=== PATIENT | female | born 1980 | race Caucasian/White ===

== ENCOUNTER 2016-08-25 16:27 | Emergency (ER) | payer BC ==
[2016-08-25 17:13] VITALS: BP 120/71
[2016-08-25] MEDS ORDERED: Ipratropium 0.5MG/2.5ML NEB* 0.5 MG/2.5 ML NEB.SOLN INH ONE (17:20)
[2016-08-25] MEDS ORDERED: methylPREDNISolone 125 MG* 2 ML VIAL IM ONE (17:20)
[2016-08-25] MEDS ORDERED: Albuterol 2.5 MG/3 ML NEB.SOL* (0.083%) INH ONE (17:20)
[2016-08-25] MEDS ORDERED: Acetaminop/Codeine 30 MG TAB* 1 TAB (300 MG/30 MG) PO ONE (17:24)
--- NOTE | 2016-08-25 17:25 | UC ---
Respiratory Complaint HPI - History of Current Complaint Chief Complaint: UCGeneralIllness Stated Complaint: COUGH/CONGESTIN/BODY ACHES Time Seen by Provider: 08/25/16 17:15 Hx Obtained From: Patient Hx Last Menstrual Period: 12/01/15 ?: No Onset/Duration: Sudden Onset, Lasting Weeks - 1, Worse Since - last 2 days Timing: Constant Character: Cough: Nonproductive Aggravating Factors: Deep Breaths, Recumbent Position Alleviating Factors: Bronchodilator - not a lot Associated Signs And Symptoms: Positive: Chills, Wheezing, URI, Nasal Congestion , Sinus Discomfort. Negative: Fever, Hoarseness - Risk Factors Pulmonary Embolism Risk Factors: Negative Pseudomonas Risk Factors: Negative Tuberculosis Risk Factors: Negative - Allergies/Home Medications Allergies/Adverse Reactions: Allergies Allergy/AdvReac Type Severity Reaction Status Date / Time No Known Allergies Allergy Verified 08/25/16 17:13 Home Medications: Home Medications guaiFENesin ER TAB [Mucinex*] 600 mg PO BID 08/25/16 [History Confirmed 08/25/16 ] PMH/Surg Hx/FS Hx/Imm Hx Endocrine History Of: Denies: Diabetes, Thyroid Disease Cardiovascular History Of: Denies: Cardiac Disorders, Hypertension Respiratory History Of: Reports: Asthma, Bronchitis Denies: COPD GI/ History Of: Denies: Ulcer - Surgical History Surgical History: Yes Surgery Procedure, Year, and Place: tonsillectomy age 8 - Family History Known Family History: Positive: Hypertension, Diabetes, Respiratory Disease - Social History Occupation: Employed Full-time - at [place] Lives: With Family Alcohol Use: None Substance Use Type: Marijuana Smoking Status (MU): Never Smoked Tobacco Household Exposure Type: Cigarettes - Immunization History Most Recent Influenza Vaccination: no Review of Systems Constitutional: Chills ENT: Sore Throat, Nasal Discharge Respiratory: Shortness Of Breath, Cough Cardiovascular: Chest Pain - rib pain with coughing. Neurological: Headache - sinus in the sphenoid sinus area All Other Systems Reviewed And Are Negative: Yes Physical Exam Triage Information Reviewed: Yes Appearance: No Pain Distress - except with coughing, Well-Nourished, Ill- Appearing Vital Signs: Initial Vital Signs Temp 97.1 F 08/25/16 17:09 Pulse 66 08/25/16 17:09 Resp 18 08/25/16 17:09 BP 120/71 01/08/17 17:09 Pulse Ox 99 08/25/16 17:09 Vital Signs Reviewed: Yes Eyes: Positive: Conjunctiva Clear ENT: Positive: Pharynx normal, TMs normal Neck: Positive: Supple, No Lymphadenopathy Respiratory: Positive: Wheezing - diffuse expiratory wheezes, worse with cough. Cardiovascular: Positive: RRR, No Murmur Musculoskeletal Exam: Normal Neurological Exam: Normal Psychological Exam: Normal Skin Exam: Normal UC Diagnostic Evaluation - Laboratory O2 Sat by Pulse Oximetry: 99 Re-Evaluation - Re-Evaluation First Eval Re-Evaluation Time: 18:07 Change: Improved - feeling much better Respiratory Course/Dx - Differential Dx/Diagnosis Differential Diagnosis/HQI/PQRI: Asthma, Lower Resp Infection, Sinusitis Provider Diagnoses: URI. Mild intermittant asthma with acute exacerbation. Acute sinusitis Discharge - Discharge Plan Condition: Stable Disposition: HOME Prescriptions: Acetaminop/Codeine 30 MG TAB* [Tylenol/Codeine 30 MG TAB*] 1 tab PO Q6H PRN #14 tab MDD 4 PRN Reason: Pain Amoxicillin (*) 875 mg PO BID #20 tab predniSONE TAB* [Deltasone TAB*] 20 mg PO DAILY #18 tab Patient Education Materials: Upper Respiratory Infection (ED), Asthma (ED), Prednisone (By mouth), Sinusitis (ED), Amoxicillin (By mouth), Acetaminophen/ Codeine (By mouth) Forms: *Work Release
[2016-08-25] MEDS ORDERED: Amoxicillin PO (*) 500 MG CAP PO ONE (17:27)
== END 2016-08-25 18:24 | disposition home or self-care (01) ==
LOC: UCCORT 16:27
DX: J06.9 Acute upper respiratory infection, unspecified (principal); J45.21 Mild intermittent asthma with (acute) exacerbation; J01.90 Acute sinusitis, unspecified
CPT/HCPCS: 96372; 99213; A9270-GY; G0463; J2930; J7644

== ENCOUNTER 2016-10-28 16:35 | Emergency (ER) | payer BC ==
[2016-10-28 17:05] VITALS: BP 107/73
[2016-10-28] MEDS ORDERED: Albuterol 2.5 MG/3 ML NEB.SOL* (0.083%) INH ONE (17:11)
[2016-10-28] MEDS ORDERED: Ipratropium 0.5MG/2.5ML NEB* 0.5 MG/2.5 ML NEB.SOLN INH ONE (17:11)
--- NOTE | 2016-10-28 17:22 | UC ---
Respiratory Complaint HPI - HPI Summary HPI Summary: 36 yo female with cough and wheezing x 3 days yesterday developed chills/felt feverish and myalgias runny nose no CP or sob - History of Current Complaint Chief Complaint: UCGeneralIllness Stated Complaint: UPPER RESPIRATORY Time Seen by Provider: 10/28/16 17:07 Hx Obtained From: Patient Hx Last Menstrual Period: 10/15/16 Onset/Duration: Gradual Onset, Lasting Days Timing: Constant Severity Initially: Mild Severity Currently: Moderate Pain Intensity: 4 Pain Scale Used: 0-10 Numeric Character: Cough: Nonproductive Aggravating Factors: Nothing Alleviating Factors: Nothing Associated Signs And Symptoms: Positive: Fever - marcin, Chills, Wheezing, Nasal Congestion, Sinus Discomfort - Allergies/Home Medications Allergies/Adverse Reactions: Allergies Allergy/AdvReac Type Severity Reaction Status Date / Time No Known Allergies Allergy Verified 08/25/16 17:13 Home Medications: Home Medications Albuterol 2.5MG/3ML (0.083%)* [Ventolin 2.5 MG/3 ML NEB.UMER*] 2.5 mg INH Q6H PRN 10/28/16 [History Confirmed 10/28/16] PMH/Surg Hx/FS Hx/Imm Hx Previously Healthy: Yes Endocrine History Of: Denies: Diabetes, Thyroid Disease Cardiovascular History Of: Denies: Cardiac Disorders, Hypertension Respiratory History Of: Reports: Asthma, Bronchitis Denies: COPD GI/ History Of: Denies: Ulcer - Surgical History Surgical History: Yes Surgery Procedure, Year, and Place: tonsillectomy age 8 - Family History Known Family History: Positive: Cardiac Disease, Hypertension, Diabetes, Respiratory Disease - Social History Alcohol Use: None Substance Use Type: None Smoking Status (MU): Never Smoked Tobacco Household Exposure Type: Cigarettes - Immunization History Most Recent Influenza Vaccination: no Review of Systems Constitutional: Fever - marcin, Chills, Fatigue Skin: Negative Eyes: Negative ENT: Nasal Discharge Respiratory: Cough Cardiovascular: Negative Gastrointestinal: Negative Genitourinary: Negative Motor: Negative Neurovascular: Negative Musculoskeletal: Myalgia Neurological: Headache Psychological: Negative All Other Systems Reviewed And Are Negative: Yes Physical Exam Triage Information Reviewed: Yes Appearance: Well-Appearing, No Pain Distress, Well-Nourished Vital Signs: Initial Vital Signs Temp 96.8 F 10/28/16 16:56 Pulse 94 10/28/16 16:56 Resp 16 10/28/16 16:56 BP 107/73 10/28/16 16:56 Pulse Ox 96 10/28/16 16:56 Vital Signs Reviewed: Yes Eyes: Positive: Conjunctiva Clear ENT: Positive: Nasal congestion Neck exam: Normal Neck: Positive: Supple, Nontender, No Lymphadenopathy Respiratory: Positive: No respiratory distress, No accessory muscle use, Wheezing - with forced expiration Cardiovascular: Positive: RRR, No Murmur Abdominal Exam: Normal Bowel Sounds: Positive: Present Musculoskeletal: Positive: ROM Intact, No Edema Neurological: Positive: Alert Psychological Exam: Normal Skin Exam: Normal UC Diagnostic Evaluation - Laboratory O2 Sat by Pulse Oximetry: 96 - normal/not hypoxic Re-Evaluation - Re-Evaluation First Eval Re-Evaluation Time: 17:55 Change: Improved - lungs CTA Respiratory Course/Dx - Differential Dx/Diagnosis Provider Diagnoses: acute bronchitis Discharge - Discharge Plan Condition: Stable Disposition: HOME
[2016-10-28] MEDS ORDERED: predniSONE TAB* 20 MG PO ONE (17:53)
== END 2016-10-28 18:05 | disposition home or self-care (01) ==
LOC: UCCORT 16:35
DX: J45.909 Unspecified asthma, uncomplicated (principal); Z77.22 Contact with and (suspected) exposure to environmental tobacco smoke (acute) (chronic)
CPT/HCPCS: 87502; 99212; G0463; J7512; J7644

== ENCOUNTER → 2016-11-18 16:22 | Emergency (ER) | payer SELFPAY ==
[~2016-11-18 16:22] MED LIST: PPD test dose* 5 TU/0.1 ML TEST (*USE PPD ORDER SET*) ONE
--- NOTE | 2016-11-19 07:24 | ED ---
Medical Screening - HPI Summary HPI Summary: Patient presents to for physical exam for clearance for new job. - History of Current Complaint Stated Complaint: PRE-EMPLOYMENT PHYSICAL/PPD Time Seen by Provider: 11/18/16 18:08 Associated Signs and Symptoms: Negative PMH/Surg Hx/FS Hx/Imm Hx Previously Healthy: Yes - obese Endocrine/Hematology History: Denies: Hx Diabetes, Hx Thyroid Disease Cardiovascular History: Denies: Hx Hypertension Respiratory History: Reports: Hx Asthma Denies: Hx Chronic Obstructive Pulmonary Disease (COPD) GI History: Denies: Hx Ulcer - Cancer History Hx Hematologic Symptoms: No Hx Palliative Cancer Treatment: No - Surgical History Surgery Procedure, Year, and Place: tonsillectomy age 8 Hx Anesthesia Reactions: No - Immunization History Date of Tetanus Vaccine: PT STATES UNSURE Date of Influenza Vaccine: NONE Hx Pertussis Vaccination: Yes Immunizations Up to Date: Unable to Obtain/Confirm - MMR vaccine - unable to confirm 2nd MMR Infectious Disease History: Denies: Hx Hepatitis, Hx Human Immunodeficiency Virus (HIV), Traveled Outside the [place] in Last 30 Days - Family History Known Family History: Positive: Cardiac Disease, Hypertension, Diabetes, Respiratory Disease - Social History Occupation: Employed Full-time Lives: With Family Alcohol Use: None Hx Substance Use: No Substance Use Type: Reports: None Hx Tobacco Use: No Smoking Status (MU): Never Smoked Tobacco Do You Chew or Dip Tobacco: No Review of Systems Constitutional: Negative Eyes: Negative ENT: Negative Cardiovascular: Negative Respiratory: Negative Gastrointestinal: Negative Genitourinary: Negative Positive: no symptoms reported, pain Musculoskeletal: Negative Skin: Negative Neurological: Negative Psychological: Normal All Other Systems Reviewed And Are Negative: Yes Physical Exam Triage Information Reviewed: Yes Completion Of Physical Exam Limited Due To: Dementia Appearance: Positive: Well-Appearing, No Pain Distress, Well-Nourished Skin: Positive: Warm, Skin Color Reflects Adequate Perfusion Head/Face: Positive: Normal Head/Face Inspection Eyes: Positive: Normal, EOMI, MISAEL, Conjunctiva Clear ENT: Positive: Normal ENT inspection, Hearing grossly normal, Pharynx normal, TMs normal Neck: Positive: Supple, Nontender, No Lymphadenopathy Respiratory/Lung Sounds: Positive: Clear to Auscultation, Breath Sounds Present Cardiovascular: Positive: Normal, RRR, Pulses are Symmetrical in both Upper and Lower Extremities Abdomen Description: Positive: Nontender, No Organomegaly, Soft Bowel Sounds: Positive: Present Musculoskeletal: Positive: Normal, Strength/ROM Intact Neurological: Positive: Normal, Sensory/Motor Intact, Alert, Oriented to Person Place, Time, CN Intact II-III, Normal Gait, Facial Symmetry, Speech Normal Psychiatric: Positive: Normal AVPU Assessment: Alert - [place] Coma Scale Best Eye Response: 4 - Spontaneous Best Motor Response: 6 - Obeys Commands Best Verbal Response: 5 - Oriented Course/Dx - Course Course Of Treatment: Patient cleared for work by history and physical exam with exception of 2nd MMR vaccine. Paperwork signed with note stating patient needed 2nd vaccine for MMR. Otherwise cleared. - Diagnoses Provider Diagnoses: History and physical examination, occupation Discharge - Discharge Plan Condition: Stable Disposition: HOME Referrals: No Primary Care Phys,NOPCP [Primary Care Provider] -
== END | disposition home or self-care (01) ==
LOC: OHCORT 16:22 → UCCORT 16:22
DX: Z11.1 Encounter for screening for respiratory tuberculosis (principal)

== ENCOUNTER 2017-01-06 18:19 | Emergency (ER) | payer SELFPAY ==
[2017-01-06 18:56] VITALS: BP 109/54
--- NOTE | 2017-01-16 18:06 | UC ---
Respiratory Complaint HPI - HPI Summary HPI Summary: Cough for 2 weeks---no fevers albuterol with some relief - History of Current Complaint Chief Complaint: UCRespiratory Stated Complaint: COUGH Time Seen by Provider: 01/06/17 19:19 Hx Obtained From: Patient Hx Last Menstrual Period: october 2016, states irregular ?: No Onset/Duration: Gradual Onset, Lasting Weeks, Still Present Timing: Constant Severity Initially: Mild Severity Currently: Mild Pain Intensity: 5 Pain Scale Used: 0-10 Numeric Character: Cough: Nonproductive Aggravating Factors: Nothing Alleviating Factors: Bronchodilator Associated Signs And Symptoms: Positive: URI, Nasal Congestion - Allergies/Home Medications Allergies/Adverse Reactions: Allergies Allergy/AdvReac Type Severity Reaction Status Date / Time No Known Allergies Allergy Verified 01/06/17 18:56 PMH/Surg Hx/FS Hx/Imm Hx Previously Healthy: No Respiratory History: Asthma - Surgical History Surgical History: Yes Surgery Procedure, Year, and Place: tonsillectomy age 8 - Family History Known Family History: Positive: Cardiac Disease, Hypertension, Diabetes, Respiratory Disease - Social History Occupation: Employed Full-time Lives: With Family Alcohol Use: None Substance Use Type: None Smoking Status (MU): Never Smoked Tobacco Household Exposure Type: Cigarettes - Immunization History Most Recent Influenza Vaccination: no Review of Systems Constitutional: Negative Skin: Negative Eyes: Negative ENT: Negative Respiratory: Cough Cardiovascular: Negative Gastrointestinal: Negative Genitourinary: Negative Motor: Negative Neurovascular: Negative Musculoskeletal: Negative Neurological: Negative Psychological: Negative All Other Systems Reviewed And Are Negative: Yes Physical Exam Triage Information Reviewed: Yes Appearance: Well-Appearing, No Pain Distress, Well-Nourished Vital Signs: Initial Vital Signs Temp 98 F 01/06/17 18:48 Pulse 88 01/06/17 18:48 Resp 20 01/06/17 18:48 BP 109/54 01/06/17 18:48 Pulse Ox 98 01/06/17 18:48 Vital Signs Reviewed: Yes Eye Exam: Normal Eyes: Positive: Conjunctiva Clear ENT Exam: Normal ENT: Positive: Normal ENT inspection, Hearing grossly normal, Pharynx normal, TMs normal. Negative: Nasal congestion, Nasal drainage, Tonsillar swelling, Tonsillar exudate, Trismus, Muffled/hoarse voice Dental Exam: Normal Neck exam: Normal Neck: Positive: Supple, Nontender Respiratory Exam: Normal Respiratory: Positive: Chest non-tender, Lungs clear, Normal breath sounds, No respiratory distress, No accessory muscle use Cardiovascular Exam: Normal Cardiovascular: Positive: RRR, No Murmur, Pulses Normal, Brisk Capillary Refill Musculoskeletal Exam: Normal Musculoskeletal: Positive: Strength Intact, ROM Intact, No Edema Neurological Exam: Normal Neurological: Positive: Alert, Muscle Tone Normal Psychological Exam: Normal Skin Exam: Normal UC Diagnostic Evaluation - Laboratory O2 Sat by Pulse Oximetry: 98 Respiratory Course/Dx - Course Course Of Treatment: prednisone, albuterol, my use antibiodics if symptoms worsen or fail to improve follow with pcp - Differential Dx/Diagnosis Differential Diagnosis/HQI/PQRI: Asthma, Bronchitis, Sinusitis Provider Diagnoses: Acute exacebation of Bronchitis, Bronchospasm Discharge - Discharge Plan Condition: Stable Disposition: HOME Prescriptions: Azithromycin TAB* [Zithromax TAB (Z-CORDELIA) 250 mg #6 tabs] 2 tab PO .TODAY, THEN 1 DAILY #1 cordelia predniSONE TAB* [Deltasone TAB*] 10 mg PO DAILY #20 tab Patient Education Materials: Acute Bronchitis (ED), Bronchospasm (ED) Forms: *Work Release Referrals: [facility] [Outside] - 5 Days No Primary Care Phys,NOPCP [Primary Care Provider] -
== END 2017-01-06 19:43 | disposition home or self-care (01) ==
LOC: UCCORT 18:19
DX: J20.9 Acute bronchitis, unspecified (principal); R05 Cough; R09.81 Nasal congestion; J06.9 Acute upper respiratory infection, unspecified; Z77.22 Contact with and (suspected) exposure to environmental tobacco smoke (acute) (chronic)
CPT/HCPCS: 99212; G0463

== ENCOUNTER 2017-08-29 17:06 | Emergency (ER) | payer SELFPAY ==
[2017-08-29 18:12] VITALS: BP 125/62
--- NOTE | 2017-08-29 18:30 | UC ---
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 -she took 1600mgs of ibuprofen at 1 time yesterday w/o any relief (adv not to take more than a prescribed amount). No trauma. no one incident that caused pain. pain radiates to upper back and into neck adn upper lateral arm. no numbing/weakness/tingling into fingers. ice made sx worse. -she usually does not support her arm when she is tattooing. -can move arm but causes extreme pain to do "anything" getting dressed, coat, shirt, bra, hair etc. -denies - History of Current Complaint Chief Complaint: UCUpperExtremity Stated Complaint: LEFT SHOULDER INJ Time Seen by Provider: 08/29/17 18:29 Hx Last Menstrual Period: "4-5 months ago", denies risk of - Allergies/Home Medications Allergies/Adverse Reactions: Allergies Allergy/AdvReac Type Severity Reaction Status Date / Time No Known Allergies Allergy Verified 08/29/17 18:12 PMH/Surg Hx/FS Hx/Imm Hx Previously Healthy: Yes - Surgical History Surgical History: Yes Surgery Procedure, Year, and Place: tonsillectomy age 8 - Family History Known Family History: Positive: Cardiac Disease, Hypertension, Diabetes, Respiratory Disease - Social History Alcohol Use: None Substance Use Type: None Smoking Status (MU): Never Smoked Tobacco Household Exposure Type: Cigarettes - Immunization History Most Recent Influenza Vaccination: no Review of Systems Constitutional: Negative Skin: Negative Eyes: Negative ENT: Negative Respiratory: Negative Cardiovascular: Negative Gastrointestinal: Negative Genitourinary: Negative Motor: Negative Neurovascular: Negative Musculoskeletal: Arthralgia, Decreased ROM Neurological: Negative Psychological: Negative Is Patient Immunocompromised?: No All Other Systems Reviewed And Are Negative: Yes Physical Exam Triage Information Reviewed: Yes Appearance: Pain Distress Vital Signs: Initial Vital Signs Temp 97.1 F 08/29/17 18:07 Resp 17 08/29/17 18:07 BP 125/62 08/29/17 18:07 Pulse Ox 100 08/29/17 18:07 Vital Signs Reviewed: Yes Neck exam: Normal Neck: Positive: Supple, Nontender Respiratory: Positive: Lungs clear, Normal breath sounds Cardiovascular Exam: Normal Cardiovascular: Positive: RRR, No Murmur, Pulses Normal Musculoskeletal: Positive: ROM Limited @ - all planes at extreme due to severe pain. she is grimacing w/ movement. + 2 B/T/BR. swollen left upper trap and TTP. CR brisk, + 2 radial left. Neurological Exam: Normal Psychological Exam: Normal Skin Exam: Normal Upper Extremity Course/Dx - Course Course Of Treatment: left shoulder xray - negative. urine HCG - Differential Dx/Diagnosis Differential Diagnosis/HQI/PQRI: Arthritis, Bursitis, Strain, Sprain Provider Diagnoses: left shoulder strain Discharge - Discharge Plan Condition: Stable Disposition: HOME Prescriptions: Ibuprofen TAB* [Motrin TAB* 600 MG] 600 mg PO Q8H PRN 20 Days #60 tab PRN Reason: Pain Patient Education Materials: Tendinitis (ED) Referrals: Andres Mon MD [Medical Doctor] - No Primary Care Phys,NOPCP [Primary Care Provider] - [facility] [Provider Group] Additional Instructions: Your shoulder xray is negative. This is soft tissue swelling. It is very important that you rest your arm and develop supporting technique for your left arm while you work. PT would be helpful as well, but you verbalized that you don 't have insurance. You can also make a make shift arm sling as we discussed to help support your arm.
--- NOTE | 2017-08-29 19:18 | RAD ---
INDICATION: Left shoulder pain COMPARISON: None TECHNIQUE: Routine frontal, Y and axial views were obtained. FINDINGS: The bony structures, joint spaces, and soft tissues are normal for age. IMPRESSION: NEGATIVE EXAMINATION
== END 2017-08-29 19:45 | disposition home or self-care (01) ==
LOC: UCCORT 17:06
DX: S46.912A Strain of unspecified muscle, fascia and tendon at shoulder and upper arm level, left arm, initial encounter (principal); X58.XXXA Exposure to other specified factors, initial encounter; Y92.9 Unspecified place or not applicable
CPT/HCPCS: 84702; 99212; G0463

== ENCOUNTER 2018-06-14 21:16 | Emergency (ER) | payer OTHER ==
[2018-06-14] MEDS ORDERED: NS 0.9% 1000 ML* 1,000 ML IV ONE (21:25)
[2018-06-14] MEDS ORDERED: Metoclopramide IV* 5 MG/ML 2 ML VIAL IV ONE (21:25)
[2018-06-14] MEDS ORDERED: diPHENhydraMINE IV* 50 MG/ML 1 ml VIAL (BENADRYL) IV ONE (21:25)
[2018-06-14] MEDS ORDERED: Ketorolac INJ* 30 MG/ML 1 ML VIAL IV PUSH ONE (21:25)
--- NOTE | 2018-06-14 21:38 | ED ---
Headache - HPI Summary HPI Summary: A 38 y/o F presents to ED with c/o temporal YOUNG and radiating to occipital lobe onset three days ago. Pt has had YOUNG similar to these previously, she gets them approx once a month. Associated sx: rhinorrhea, mild photophobia. She states she had a recent cold. Denies sinus pain, sore throat, fever, neck pain. Pt does not have a menstrual cycle. Pt does not have a PCP nor a neurologist. PMHx : asthma. Pt was seen in [place] last week and given Flexeril and Bactrim. - History Of Current Complaint Chief Complaint: EDHeadache Stated Complaint: HEADACHE Time Seen by Provider: 06/14/18 21:26 Hx Obtained From: Patient Hx Last Menstrual Period: "4-5 months ago", denies risk of Onset/Duration: Started days ago, Still Present Initially Headache Was: Severe Currently Pain Is: Current Pain Scale(0-10)= - 10, Severe Timing: Constant Location of Headache: Temporal, Occipital Associated Signs And Symptoms: Other (Noted In Comments) - see HPI Summary - Allergies/Home Medications Allergies/Adverse Reactions: Allergies Allergy/AdvReac Type Severity Reaction Status Date / Time No Known Allergies Allergy Verified 06/14/18 22:28 Home Medications: Home Medications Flexeril 10 MG TAB* 10 mg PO Q12HR PRN 06/14/18 [History Confirmed 06/14/18] PMH/Surg Hx/FS Hx/Imm Hx Previously Healthy: No Endocrine/Hematology History: Denies: Hx Diabetes, Hx Thyroid Disease Cardiovascular History: Denies: Hx Hypertension Respiratory History: Reports: Hx Asthma Denies: Hx Chronic Obstructive Pulmonary Disease (COPD) GI History: Denies: Hx Ulcer Neurological History: Reports: Hx Headaches - Cancer History Hx Hematologic Symptoms: No Hx Palliative Cancer Treatment: No - Surgical History Surgery Procedure, Year, and Place: tonsillectomy age 8 Hx Anesthesia Reactions: No - Immunization History Date of Tetanus Vaccine: PT STATES UNSURE Date of Influenza Vaccine: NONE Infectious Disease History: No Infectious Disease History: Denies: Hx Hepatitis, Hx Human Immunodeficiency Virus (HIV), Traveled Outside the [place] in Last 30 Days - Family History Known Family History: Positive: Cardiac Disease, Hypertension, Diabetes, Respiratory Disease Negative: Other - neg: migraines/YOUNG - Social History Occupation: Unemployed Lives: With Family Alcohol Use: None Hx Substance Use: No Substance Use Type: Reports: None Hx Tobacco Use: No Smoking Status (MU): Never Smoked Tobacco Review of Systems Negative: Fever Positive: Photophobia - mild Positive: Nasal Discharge, Other - neg: sinus pain. Negative: Sore Throat Negative: Other - neg: neck pain Positive: Headache All Other Systems Reviewed And Are Negative: Yes Physical Exam - Summary Physical Exam Summary: Appearance: Well appearing, no pain distress Skin: warm, dry, reflects adequate perfusion Head/face: normal, temporal arteries are non-tender Eyes: EOMI, MISAEL ENT: mucous membranes moist, no sinus cavity tenderness Neck: supple, non-tender Respiratory: CTA, breath sounds present Cardiovascular: RRR, pulses symmetrical Abdomen: non-tender, soft Bowel Sounds: present Musculoskeletal: normal, strength/ROM intact Neuro: normal, sensory motor intact, A&Ox3 Triage Information Reviewed: Yes Vital Signs On Initial Exam: Initial Vitals Temp Pulse Resp BP Pulse Ox 98.2 F 84 20 127/84 98 06/14/18 21:18 06/14/18 21:18 06/14/18 21:18 06/14/18 21:18 06/14/18 21:18 Vital Signs Reviewed: Yes Diagnostics - Vital Signs Vital Signs Temp Pulse Resp BP Pulse Ox 06/14/18 21:18 98.2 F 84 20 127/84 98 - Laboratory Lab Statement: Any lab studies that have been ordered have been reviewed, and results considered in the medical decision making process. Re-Evaluation - Re-Evaluation 1 Re-Evaluation Time: 22:43 Change: Improved Comment: Pt is feeling better and is requesting discharge. Headache Course/Dx - Course Course Of Treatment: Patient with minor upper respiratory symptoms leading to exacerbation of her chronic headache condition. She was treated here with near total relief. She is not on any medications to control her headaches. She was given primary care referral, neurology referral and will follow-up as soon as possible. No high risk features today. - Diagnoses Differential Diagnosis/HQI/PQRI: Migraine, Sinus Headache, Subarachnoid Hemorrhage, Temporal Arteritis, Tension Headache, Viral Syndrome Provider Diagnoses: URI (upper respiratory infection), Migraine headache Discharge - Sign-Out/Discharge Documenting (check all that apply): Patient Departure - DC - Discharge Plan Condition: Improved Disposition: HOME Prescriptions: Promethazine TAB* [Phenergan Tab*] 25 mg PO Q6H PRN #20 tab PRN Reason: headache/nausea Patient Education Materials: Migraine Headache (ED) Referrals: [facility] [Outside] [facility] [Outside] Chastity Barker MD [Medical Doctor] - Additional Instructions: Prescribed medication along with ibuprofen, Benadryl, water and caffeine if serious headache. Return with fevers, worsening, new symptoms or other concerns. - Billing Disposition and Condition Condition: IMPROVED Disposition: Home - Attestation Statements Document Initiated by Scribe: Yes Documenting Scribe: Justo Beckham Provider For Whom Scribe is Documenting (Include Credential): Dr. Amilcar Brizuela MD Scribe Attestation: Justo Ramirez scribed for Dr. Amilcar Brizuela MD on 06/15/18 at 0412. Scribe Documentation Reviewed: Yes Provider Attestation: The documentation as recorded by the Justo lehman accurately reflects the service I personally performed and the decisions made by , Dr. Amilcar Brizuela MD
[2018-06-14] MEDS ORDERED: diPHENhydraMINE PO* 50 MG PO ONE (21:55)
[2018-06-14 23:44] VITALS: BP 98/76
== END 2018-06-14 23:50 | disposition home or self-care (01) ==
LOC: ED 21:16
DX: J06.9 Acute upper respiratory infection, unspecified (principal); G43.909 Migraine, unspecified, not intractable, without status migrainosus
CPT/HCPCS: 96374; 96375; 99284; A9270-GY; J1885; J2765

== ENCOUNTER 2018-06-29 22:57 | Emergency (ER) | payer OTHER ==
[2018-06-29] MEDS ORDERED: NS 0.9% 1000 ML* 1,000 ML IV ONE (23:30)
[2018-06-29] MEDS ORDERED: Ketorolac INJ* 30 MG/ML 1 ML VIAL IV PUSH ONE (23:31)
[2018-06-29] MEDS ORDERED: Ondansetron INJ* 2 MG/ML VIAL IV ONE (23:31)
[2018-06-29 23:47] LABS: ABS Basophils 0 10^3/ul (0-0.2); ABS Eosinophils 0.1 10^3/ul (0-0.6); ABS Lymphocytes 2.5 10^3/ul (1.0-4.8); ABS Monocytes 0.7 10^3/ul (0-0.8); ABS Neutrophils 5.9 10^3/ul (1.5-7.7); ABS Nucleated RBC 0 10^3/ul; Hematocrit 43 % (35-47); Hemoglobin 14.6 g/dl (12.0-16.0); Lymphocyte % 26.8 % (25-47); Mean Corpuscular HGB Conc 34 g/dl (31-36); Mean Corpuscular Hemoglobin 30 pg (27-31); Mean Corpuscular Volume 87 fL (80-97); Mean Platelet Volume 7.8 fL (7.4-10.4); Nucleated Red Blood Cells % 0.1; Platelet Count 304 10^3/ul (150-450); Red Blood Count 4.95 10^6/ul (4.00-5.40); Red Cell Distribution Width 14 % (10.5-15); White Blood Count 9.2 10^3/ul (3.5-10.8)
[2018-06-30 00:07] LABS: EGFR Non-African American 117.6 (>60)
[2018-06-30] MEDS ORDERED: Iohexol 300* (CONTRAST) 10 ML SDV IV ONE (01:41)
--- NOTE | 2018-06-30 01:46 | ED ---
GI/ HPI - HPI Summary HPI Summary: 38-year-old female presents with epigastric pain tonight. She admits to nausea and vomiting. she states she has not been able to keep anything down. No diarrhea. She states never has pain before. No previous belly surgeries. No blood in her stool. No chest pain or shortness of breath. No flank pain. No urinary symptoms. No abnormal vaginal discharge. Has no medical conditions has not taking anything for pain. she denies any cough or recent illness. - History of Current Complaint Chief Complaint: EDAbdPain Time Seen by Provider: 06/29/18 23:26 Stated Complaint: ABD PAIN Hx Last Menstrual Period: "4-5 months ago", denies risk of Pain Intensity: 10 - Allergy/Home Medications Allergies/Adverse Reactions: Allergies Allergy/AdvReac Type Severity Reaction Status Date / Time No Known Allergies Allergy Verified 06/29/18 23:00 PMH/Surg Hx/FS Hx/Imm Hx Endocrine/Hematology History: Denies: Hx Diabetes, Hx Thyroid Disease Cardiovascular History: Denies: Hx Hypertension Respiratory History: Reports: Hx Asthma Denies: Hx Chronic Obstructive Pulmonary Disease (COPD) GI History: Denies: Hx Ulcer Neurological History: Reports: Hx Headaches - Cancer History Hx Hematologic Symptoms: No Hx Palliative Cancer Treatment: No - Surgical History Surgery Procedure, Year, and Place: tonsillectomy age 8 Hx Anesthesia Reactions: No - Immunization History Date of Tetanus Vaccine: PT STATES UNSURE Date of Influenza Vaccine: NONE Infectious Disease History: No Infectious Disease History: Denies: Hx Hepatitis, Hx Human Immunodeficiency Virus (HIV), Traveled Outside the [place] in Last 30 Days - Family History Known Family History: Positive: Cardiac Disease, Hypertension, Diabetes, Respiratory Disease Negative: Other - neg: migraines/YOUNG - Social History Alcohol Use: None Hx Substance Use: No Substance Use Type: Reports: None Hx Tobacco Use: No Smoking Status (MU): Never Smoked Tobacco Review of Systems Negative: Fever Negative: Chest Pain Negative: Shortness Of Breath Positive: Abdominal Pain, Vomiting, Nausea. Negative: Diarrhea All Other Systems Reviewed And Are Negative: Yes Physical Exam Triage Information Reviewed: Yes Vital Signs On Initial Exam: Initial Vitals Temp Pulse Resp BP Pulse Ox 97.8 F 86 20 126/93 96 06/29/18 22:58 06/29/18 22:58 06/29/18 22:58 06/29/18 22:58 06/29/18 22:58 Vital Signs Reviewed: Yes Appearance: Positive: Well-Appearing Skin: Positive: Warm, Dry Head/Face: Positive: Normal Head/Face Inspection Eyes: Positive: Normal, Conjunctiva Clear ENT: Positive: Pharynx normal Respiratory/Lung Sounds: Positive: Clear to Auscultation, Breath Sounds Present Cardiovascular: Positive: Normal, RRR Abdomen Description: Positive: Soft, Other: - tenderness in RUQ Bowel Sounds: Positive: Present Musculoskeletal: Positive: Normal Neurological: Positive: Normal Psychiatric: Positive: Normal Diagnostics - Vital Signs Vital Signs Temp Pulse Resp BP Pulse Ox 06/30/18 00:10 75 124/70 98 06/29/18 22:58 97.8 F 86 20 126/93 96 - Laboratory Lab Results: Lab Results 06/29/18 06/29/18 06/29/18 Range/Units 23:37 23:37 23:38 WBC 9.2 (3.5-10.8) 10^3/ul RBC 4.95 (4.00-5.40) 10^6/ul Hgb 14.6 (12.0-16.0) g/dl Hct 43 (35-47) % MCV 87 (80-97) fL MCH 30 (27-31) pg MCHC 34 (31-36) g/dl RDW 14 (10.5-15) % Plt Count 304 (150-450) 10^3/ul MPV 7.8 (7.4-10.4) fL Neut % (Auto) 64.2 (38-83) % Lymph % (Auto) 26.8 (25-47) % [place] % (Auto) 7.6 H (0-7) % Eos % (Auto) 1.0 (0-6) % Baso % (Auto) 0.4 (0-2) % Absolute Neuts (auto) 5.9 (1.5-7.7) 10^3/ul Absolute Lymphs (auto) 2.5 (1.0-4.8) 10^3/ul Absolute Monos (auto) 0.7 (0-0.8) 10^3/ul Absolute Eos (auto) 0.1 (0-0.6) 10^3/ul Absolute Basos (auto) 0 (0-0.2) 10^3/ul Absolute Nucleated RBC 0 10^3/ul Nucleated RBC % 0.1 D-Dimer, Quantitative < 200 (Less Than 230) ng/mL Sodium 135 (135-145) mmol/L Potassium 3.8 (3.5-5.0) mmol/L Chloride 104 (101-111) mmol/L Carbon Dioxide 26 (22-32) mmol/L Anion Gap 5 (2-11) mmol/L BUN 16 (6-24) mg/dL Creatinine 0.58 (0.51-0.95) mg/dL Est GFR ( Amer) 142.3 (>60) Est GFR (Non-Af Amer) 117.6 (>60) BUN/Creatinine Ratio 27.6 H (8-20) Glucose 98 (70-100) mg/dL Calcium 8.7 (8.6-10.3) mg/dL Total Bilirubin 0.30 (0.2-1.0) mg/dL AST 14 (13-39) U/L ALT 10 (7-52) U/L Alkaline Phosphatase 88 (34-104) U/L C-Reactive Protein 12.41 H (<8.01) mg/L Total Protein 6.9 (6.4-8.9) g/dL Albumin 3.9 (3.2-5.2) g/dL Globulin 3.0 (2-4) g/dL Albumin/Globulin Ratio 1.3 (1-3) Lipase 19 (11.0-82.0) U/L Beta HCG, Quant < 0.60 mIU/mL Result Diagrams: 06/29/18 23:37 06/29/18 23:37 Lab Statement: Any lab studies that have been ordered have been reviewed, and results considered in the medical decision making process. - CT abd CT Interpretation Completed By: Radiologist Summary of CT Findings: IMPRESSION: 1. Hepatic lesion in the dome which is probably similar to a prior study of. 09/14/2013 and may reflect focal nodular hyperplasia or possible adenoma. 2. Large nabothian cyst measuring 2.8 x 3.6 x 2.7 cm which is similar. 3. Otherwise negative CT abdomen/pelvis. - Ultrasound No standard instances Ultrasound Interpretation Completed By: Radiologist Summary of Ultrasound Findings: IMPRESSION: 1. Mild hepatomegaly. 2. Otherwise negative right upper quadrant sonogram. No gallstones. Re-Evaluation - Re-Evaluation First Eval Re-Evaluation Time: 01:59 Change: Improved Comment: feeling better but pain not completely resolved GIGU Course/Dx - Course Course Of Treatment: 38-year-old female presents with epigastric pain tonight. She admits to nausea and vomiting. she states she has not been able to keep anything down. No diarrhea. She states never has pain before. No previous belly surgeries. No blood in her stool. No chest pain or shortness of breath. No flank pain. No urinary symptoms. No abnormal vaginal discharge. Has no medical conditions has not taking anything for pain. On exam has tenderness in the right upper quadrant with no rebound. white cell count normal. CRP normal. Ultrasound negative. With extreme amount of pain got CT. CT shows no acute findings. discussed other findings with patient. d-dimer negative. urine likely contaminant. patient has promethazine at home. told to follow up with primary. patient understands and agrees with plan. - Diagnoses Differential Diagnoses - Female: Cholelithiasis, Cholecystitis, Urinary Tract Infection Provider Diagnoses: Abdominal pain, Vomiting Discharge - Sign-Out/Discharge Documenting (check all that apply): Patient Departure - Discharge Plan Condition: Good Disposition: HOME Patient Education Materials: Acute Nausea and Vomiting (ED) Referrals: No Primary Care Phys,NOPCP [Primary Care Provider] - Additional Instructions: Can take promethazine every 6 hours as needed for nausea Drink small amounts of fluid as tolerated When able to eat follow BRAT diet: Bananas, rice, applesauce, toast Take ibuprofen or Tylenol for pain as needed every 6 hours Follow up with primary within 5 days Return to ED if develop any new or worsening symptoms - Billing Disposition and Condition Condition: GOOD Disposition: Home
[2018-06-30] MEDS ORDERED: Pantoprazole IV* 40 MG IV ONE (01:58)
[2018-06-30 02:15] LABS: Urine Appearance Cloudy; Urine Blood Negative (Negative); Urine Color Yellow; Urine Ketones Negative (Negative); Urine Protein Negative (Negative); Urine Red Blood Cell Absent (Absent); Urine Specific Gravity 1.024 (1.010-1.030); Urine Urobilinogen Negative (Negative); Urine White Blood Cell Absent (Absent)
[2018-06-30 02:31] VITALS: BP 118/77
== END 2018-06-30 02:29 | disposition home or self-care (01) ==
LOC: ED 22:57
DX: R10.13 Epigastric pain (principal); R11.2 Nausea with vomiting, unspecified
CPT/HCPCS: 36415; 74177; 76705; 80053; 81003; 81015; 83690; 84702; 85025; 85379; 86140; 87086; 96374; 96375; 99282; J1885; J2405; Q9967

== ENCOUNTER 2018-09-17 15:09 | Emergency (ER) | payer OTHER ==
[2018-09-17 15:40] VITALS: BP 116/80
[2018-09-17 15:52] LABS: Influenza A Molecular POSITIVE (Negative)
--- NOTE | 2018-09-17 15:56 | ED ---
Influenza-Like Illness - HPI Summary HPI Summary: 38 yr old with four days of cough, runny nose, sore throat, fatigue. Onset Friday. She has had chills. No drooling. No other complaints. - History of Current Complaint Chief Complaint: UCRespiratory Time Seen by Provider: 09/17/18 15:43 - Allergy/Home Medications Allergies/Adverse Reactions: Allergies Allergy/AdvReac Type Severity Reaction Status Date / Time No Known Allergies Allergy Verified 09/17/18 15:33 Home Medications: Home Medications Dm/PE/Acetaminophen/Doxylamine [Daytime-Nighttime Cold-Flu] 2 each PO ONCE PRN 09/17/18 [History Confirmed 09/17/18] PMH/Surg Hx/FS Hx/Imm Hx Endocrine/Hematology History: Denies: Hx Diabetes, Hx Thyroid Disease Cardiovascular History: Denies: Hx Hypertension Respiratory History: Reports: Hx Asthma Denies: Hx Chronic Obstructive Pulmonary Disease (COPD) GI History: Denies: Hx Ulcer Neurological History: Reports: Hx Headaches - Cancer History Hx Hematologic Symptoms: No Hx Palliative Cancer Treatment: No - Surgical History Surgery Procedure, Year, and Place: tonsillectomy age 8 Hx Anesthesia Reactions: No - Immunization History Date of Tetanus Vaccine: PT STATES UNSURE Date of Influenza Vaccine: NONE Infectious Disease History: No Infectious Disease History: Denies: Hx Hepatitis, Hx Human Immunodeficiency Virus (HIV), Traveled Outside the [place] in Last 30 Days - Family History Known Family History: Positive: Cardiac Disease, Hypertension, Diabetes, Respiratory Disease Negative: Other - neg: migraines/YOUNG - Social History Occupation: Employed Full-time Lives: With Family Alcohol Use: None Hx Substance Use: No Substance Use Type: Reports: None Hx Tobacco Use: No Smoking Status (MU): Former Smoker Review of Systems Positive: Chills Positive: Sore Throat, Nasal Discharge Positive: Cough All Other Systems Reviewed And Are Negative: Yes Physical Exam Triage Information Reviewed: Yes Vital Signs On Initial Exam: Initial Vitals Temp Pulse Resp BP Pulse Ox 97.9 F 94 18 116/80 97 09/17/18 15:35 09/17/18 15:35 09/17/18 15:35 09/17/18 15:35 09/17/18 15:35 Vital Signs Reviewed: Yes Appearance: Positive: Well-Appearing, No Pain Distress Skin: Positive: Warm, Skin Color Reflects Adequate Perfusion Head/Face: Positive: Normal Head/Face Inspection Eyes: Positive: EOMI ENT: Positive: Pharyngeal erythema, Nasal congestion, Nasal drainage, TMs normal Respiratory/Lung Sounds: Positive: Clear to Auscultation, Breath Sounds Present Cardiovascular: Positive: RRR. Negative: Murmur Abdomen Description: Negative: Distended Musculoskeletal: Positive: Strength/ROM Intact Neurological: Positive: Sensory/Motor Intact, Alert, Oriented to Person Place, Time, CN Intact II-III Psychiatric: Positive: Normal Diagnostics - Vital Signs Vital Signs Temp Pulse Resp BP Pulse Ox 09/17/18 15:35 97.9 F 94 18 116/80 97 - Laboratory Lab Results: Lab Results 09/17/18 Range/Units 15:47 Influenza A (Rapid) Positive A (Negative) Lab Statement: Any lab studies that have been ordered have been reviewed, and results considered in the medical decision making process. Flu Symptom Course/Dx - Course Course Of Treatment: 38 yr old with influenza. tamiflu, and dc home, note for work - Diagnoses Provider Diagnoses: Influenza Discharge - Sign-Out/Discharge Documenting (check all that apply): Patient Departure All imaging exams completed and their final reports reviewed: No Studies - Discharge Plan Condition: Good Disposition: HOME Prescriptions: Oseltamivir CAP* [Tamiflu CAP*] 75 mg PO BID #10 cap Patient Education Materials: Influenza (ED) Forms: *Work Release Referrals: No Primary Care Phys,NOPCP [Primary Care Provider] - [facility] [place] [facility] [Outside] - Billing Disposition and Condition Condition: GOOD Disposition: Home
== END 2018-09-17 16:01 | disposition home or self-care (01) ==
LOC: UCCORT 15:09
DX: J11.1 Influenza due to unidentified influenza virus with other respiratory manifestations (principal); Z87.891 Personal history of nicotine dependence
CPT/HCPCS: 99212; G0463

== ENCOUNTER 2019-07-19 14:12 | Emergency (ER) | payer OTHER ==
[2019-07-19] MEDS ORDERED: HYDROmorphone INJ* 0.5 MG/0.5 ML SYRINGE IV SLOW PU ONE (14:21)
[2019-07-19] MEDS ORDERED: NS 0.9% 500 ML* 500 ML IV ONE (14:22)
[2019-07-19] MEDS ORDERED: HYDROmorphone INJ1* 1 MG/ML SYRINGE ONE (14:22)
[2019-07-19] MEDS ORDERED: HYDROmorphone INJ1* 1 MG/ML SYRINGE IV SLOW PU ONE (14:24)
--- NOTE | 2019-07-19 14:27 | ED ---
Lower Extremity - HPI Summary HPI Summary: Patient is a 39 y/o F presenting to the ED via EMS for a chief complaint of left ankle pain after a fall on 07/19/19. Per EMS, patient went out of her house when she slipped on ice from a standing position. She now complains of left ankle pain and swelling, and is unable to bear weight on the left side. She rates her current pain as 10/10 in severity. Per EMS, patient was given Zofran and 2 doses of 5 mg morphine with some relief for 5 minutes before the pain returns. Last dose of morphine was given at 13:57. Patient denies head injury or LOC. Patient denies any fever, chills, erythema of eyes, sore throat, CP, SOB, cough, abdominal pain, N/V, dysuria, hematuria, rash, syncope, or dizziness. Patient denies tobacco or alcohol use. She does not have a PCP. Allergies noted. - History of Current Complaint Stated Complaint: FOOT INJURY Time Seen by Provider: 07/19/19 14:15 Hx Obtained From: Patient, EMS Hx Last Menstrual Period: unknown Mechanism Of Injury: Fall From A Standing Position Onset of Pain: Immediate Onset/Duration: Still Present Severity Initially: Severe Severity Currently: Severe Pain Intensity: 10 Pain Scale Used: 0-10 Numeric Timing: Constant Location: Is Discrete @ - Left ankle Associated Signs And Symptoms: Negative: Fever Aggravating Factor(s): Movement Alleviating Factor(s): Other - Morphine Able to Bear Weight: No - Allergies/Home Medications Allergies/Adverse Reactions: Allergies Allergy/AdvReac Type Severity Reaction Status Date / Time No Known Allergies Allergy Verified 09/17/18 15:33 Home Medications: Home Medications NK [No Home Medications Reported] 07/19/19 [History Confirmed 07/19/19] PMH/Surg Hx/FS Hx/Imm Hx Previously Healthy: Yes Endocrine/Hematology History: Denies: Hx Diabetes, Hx Thyroid Disease Cardiovascular History: Denies: Hx Hypercholesterolemia, Hx Hypertension Respiratory History: Reports: Hx Asthma Denies: Hx Chronic Obstructive Pulmonary Disease (COPD) GI History: Denies: Hx Ulcer Sensory History: Denies: Hx Legally Blind, Hx Deafness Opthamlomology History: Denies: Hx Legally Blind EENT History: Denies: Hx Deafness Neurological History: Reports: Hx Headaches - Cancer History Hx Hematologic Symptoms: No Hx Palliative Cancer Treatment: No - Surgical History Surgical History: Yes Surgery Procedure, Year, and Place: tonsillectomy age 8 Hx Anesthesia Reactions: No - Immunization History Date of Tetanus Vaccine: PT STATES UNSURE Date of Influenza Vaccine: NONE Infectious Disease History: Denies: Hx Hepatitis, Hx Human Immunodeficiency Virus (HIV) - Family History Known Family History: Positive: Cardiac Disease, Hypertension, Diabetes, Respiratory Disease Negative: Other - neg: migraines/YOUNG - Social History Occupation: Unemployed Lives: With Family Alcohol Use: None Hx Substance Use: No Substance Use Type: Reports: None Hx Tobacco Use: Yes Smoking Status (MU): Former Smoker Review of Systems Negative: Fever, Chills Negative: Erythema Negative: Sore Throat Negative: Chest Pain Negative: Shortness Of Breath, Cough Negative: Abdominal Pain, Vomiting, Nausea Negative: dysuria, hematuria Positive: Myalgia - Left ankle, Edema - Left ankle Negative: Rash Neurological: Other - Negative dizziness Negative: Syncope All Other Systems Reviewed And Are Negative: Yes Physical Exam - Summary Physical Exam Summary: Constitutional: Well-developed, Well-nourished, Alert. (-) Distressed Skin: Warm, Dry HENT: Normocephalic; Atraumatic Eyes: Conjunctiva normal Neck: Musculoskeletal ROM normal neck. (-) JVD, (-) Stridor, (-) Tracheal deviation Cardio: Rhythm regular, rate normal, Heart sounds normal; Intact distal pulses; The pedal pulses are 2+ and symmetric. Radial pulses are 2+ and symmetric. (-) Murmur Pulmonary/Chest wall: Effort normal. (-) Respiratory distress, (-) Wheezes, (-) Rales Abd: Soft, (-) tenderness, (-) Distension, (-) Guarding, (-) Rebound Musculoskeletal: Swelling and bruising over the left malleolus, outward angulation of the ankle. Lymph: (-) Cervical adenopathy Neuro: Alert, Oriented x3 Psych: Mood and affect Normal Triage Information Reviewed: Yes Vital Signs Reviewed: Yes Procedures - Sedation Patient Received Moderate/Deep Sedation with Procedure: Yes Are You The Provider Who Administered The Sedation: [place] of Provider Whom Sedated Patient: ShreeMinor - Joint Reduction Left Joint Reduction Site: ankle (L) Conscious Sedation: Yes Reduction Attempts: 1 Pre-Procedure NV Exam: Yes - Intact Post Joint Reduction Film: joint reduced Diagnostics - Laboratory Lab Statement: Any lab studies that have been ordered have been reviewed, and results considered in the medical decision making process. - Radiology Ankle X-ray Radiology Interpretation Completed By: Radiologist Summary of Radiographic Findings: Ankle X-ray IMPRESSION: #. Trimalleolar ankle fracture and talocrural joint dislocation with apex medial angulation. # . Lateral view of the entire LEFT foot is without evidence for additional fracture or assessment is limited without an orthogonal view of the foot. #. Soft tissue swelling about the visualized lower leg, ankle, and foot. Reviewed by Dr. Saleem. Foot X-ray Radiology Interpretation Completed By: Radiologist Summary of Radiographic Findings: Foot X-ray IMPRESSION: #. Trimalleolar ankle fracture and talocrural joint dislocation with apex medial angulation. #. Lateral view of the entire LEFT foot is without evidence for additional fracture or assessment is limited without an orthogonal view of the foot. #. Soft tissue swelling about the visualized lower leg, ankle, and foot. Reviewed by Dr. Saleem. Knee X-ray Radiology Interpretation Completed By: Radiologist Summary of Radiographic Findings: Knee X-ray IMPRESSION: NO ACUTE OSSEOUS INJURY. IF SYMPTOMS PERSIST, RECOMMEND REPEAT IMAGING. Reviewed by Dr. Saleem. Ankle X-ray 1 Radiology Interpretation Completed By: Radiologist Summary of Radiographic Findings: Ankle X-ray 1 IMPRESSION: #. Trimalleolar ankle fracture and talocrural joint dislocation with apex medial angulation. # . Lateral view of the entire LEFT foot is without evidence for additional fracture or assessment is limited without an orthogonal view of the foot. #. Soft tissue swelling about the visualized lower leg, ankle, and foot. Reviewed by Dr. Saleem. Ankle X-ray 2 Radiology Interpretation Completed By: ED Physician Summary of Radiographic Findings: Ankle X-ray 2 IMPRESSION: joint reduced. Reviewed and interpreted by Dr. Saleem, pending official radiology report. Re-Evaluation - Re-Evaluation First Eval Re-Evaluation Time: 21:06 Change: Improved Comment: At 21:06, patient is able to bear weight. Lower Extremity Course/Dx - Course Course Of Treatment: Patient is a 39 y/o F presenting to the ED via EMS for a chief complaint of left ankle pain after a fall on 07/19/19. Per EMS, patient went out of her house when she slipped on ice from a standing position. She now complains of left ankle pain and swelling, and is unable to bear weight on the left side. She rates her current pain as 10/10 in severity. Per EMS, patient was given Zofran and 2 doses of 5 mg morphine with some relief for 5 minutes before the pain returns. Last dose of morphine was given at 13:57. Patient denies head injury or LOC. Patient denies any fever, chills, erythema of eyes, sore throat, CP, SOB, cough, abdominal pain, N/V, dysuria, hematuria, rash, syncope, or dizziness. Patient denies tobacco or alcohol use. She does not have a PCP. Allergies noted. On exam, swelling and bruising over the left malleolus , outward angulation of the ankle. In the ED course, patient was given Dilaudid 2 mg IV, Ketamine 200 mg IV, Versed 2 mg IV, and fluids. Ankle X-ray 1 IMPRESSION: #. Trimalleolar ankle fracture and talocrural joint dislocation with apex medial angulation. #. Lateral view of the entire LEFT foot is without evidence for additional fracture or assessment is limited without an orthogonal view of the foot. #. Soft tissue swelling about the visualized lower leg, ankle, and foot. Foot X-ray IMPRESSION: #. Trimalleolar ankle fracture and talocrural joint dislocation with apex medial angulation. #. Lateral view of the entire LEFT foot is without evidence for additional fracture or assessment is limited without an orthogonal view of the foot. #. Soft tissue swelling about the visualized lower leg, ankle, and foot. Knee X- ray IMPRESSION: NO ACUTE OSSEOUS INJURY. IF SYMPTOMS PERSIST, RECOMMEND REPEAT IMAGING. Ankle X-ray 2 IMPRESSION: joint reduced. Joint reduction procedure: Left ankle was reduced. There was conscious sedation. There was 1 reduction attempt. There was an intact pre-procedure NV exam. Post reduction films shows joint reduction. Dr. Minor Swann administered procedural sedation. At 21:06, patient is able to bear weight. Patient will be discharged with a diagnosis of trimalleolar fracture and ankle dislocation. Follow up with Dr. Orosco within 24 hours. - Diagnoses Provider Diagnoses: Trimalleolar fracture, Ankle dislocation Discharge ED - Sign-Out/Discharge Documenting (check all that apply): Patient Departure - Discharge - Discharge Plan Condition: Stable Disposition: HOME Patient Education Materials: Moderate Sedation (ED), Ankle Dislocation (ED) Forms: *Work Release Referrals: [facility] [Outside] Tobi Orosco MD [Medical Doctor] - Additional Instructions: RETURN TO THE EMERGENCY DEPARTMENT FOR CHANGING OR WORSENING SYMPTOMS. Follow up with Karishma Rayo in 2-[address] Orosco with in 24 hours to get set up for surgery. Keep your left ankle elevated on 3-4 pillows at all times. - Attestation Statements Document Initiated by Scribe: Yes Documenting Scribe: Chastity Wallace Provider For Whom Scribe is Documenting (Include Credential): Ascencion Saleem MD Scribe Attestation: IChastity, scribed for Ascencion Saleem MD on 07/19/19 at 2103. Status of Scribe Document: Ready
[2019-07-19] MEDS ORDERED: HYDROmorphone INJ* 0.5 MG/0.5 ML SYRINGE IV ONE (15:48)
[2019-07-19] MEDS ORDERED: KETAMINE HCL* 50 MG/ML 10 ML VIAL IV ONE (18:18)
[2019-07-19] MEDS ORDERED: Midazolam* 1 MG/ML 2 ML VIAL (2 MG) IV SLOW PU ONE (18:18)
[2019-07-19] MEDS ORDERED: Midazolam* 1 MG/ML 10 ML VIAL (10 MG) ONE (18:41)
--- NOTE | 2019-07-19 19:03 | ED ---
ED Sedation - Procedural Sedation/Analgesia Sedation Course: RT Present - at this time the patient is alert and oriented 3. The patient is hemodynamically stable. After the procedure patient will continue under Dr. Mendez's care, Emergency Airway Equipment Available, Informed Consent Obtained, Time Out Completed, End-tidal Capnography Utilized Adverse Reactions Experienced by Patient: None Mallampati Classification: Class I ASA Classification: Class I: Normal/Healthy Diagnosis: trimalleolar fracture Pre-Procedural Heart: S1 and S2 Pre-Procedural Lungs: Clear Auscultation Comment/Plan of Care: trimalleolar fracture reduction Provider Procedure Attestation: With My Signature Below, I Attest to have Personally Reviewed and Agree with the Pre-Sedation History and Pre-Service Assessment Update Cleared for Moderate Sedation: Yes Pre-Procedural Diagnosis: trimalleolar fracture Post-Procedural Diagnosis: trimalleolar fracture reduction Procedure: reduction of the trimalleolar fracture Estimated Blood Loss: None Specimen(s): None Findings: None Implants/Tubes/Drains Placed: None Procedures - Sedation Patient Received Moderate/Deep Sedation with Procedure: Yes Are You The Provider Who Administered The Sedation: Yes - Procedural Sedation/Analgesia Sedation Course: RT Present, Emergency Airway Equipment Available, Informed Consent Obtained, Time Out Completed, End-tidal Capnography Utilized Adverse Reactions Experienced by Patient: None Mallampati Classification: Class I ASA Classification: Class I: Normal/Healthy Pre-Procedural Heart: S1 and S2 Pre-Procedural Lungs: Clear Auscultation Comment/Plan of Care: Reduction of trimalleolar fracture Provider Procedure Attestation: With My Signature Below, I Attest to have Personally Reviewed and Agree with the Pre-Sedation History and Pre-Service Assessment Update Cleared for Moderate Sedation: Yes Pre-Procedural Diagnosis: Trimalleolar fracture Post-Procedural Diagnosis: Reduction of trimalleolar fracture Procedure: Reduction of trimalleolar fracture Estimated Blood Loss: None Specimen(s): None Findings: None Implants/Tubes/Drains Placed: None - at this time the patient is alert and oriented 3. Patient will continue with the care with Dr. Saleem Attgilbert Scribe Attestation: Magi Galvez User Type: Provider with Scribe Provider Attestation: The documentation recorded by the scribe accurately reflects the service I personally performed and the decisions made by me.
[2019-07-19] MEDS ORDERED: oxyCODONE/Acetamin 5/325 MG* TAB PO ONE (19:54)
[2019-07-19 22:04] VITALS: BP 107/68
== END 2019-07-19 21:50 | disposition home or self-care (01) ==
LOC: ED 14:12
DX: S82.852A Displaced trimalleolar fracture of left lower leg, initial encounter for closed fracture (principal); W00.0XXA Fall on same level due to ice and snow, initial encounter; Y92.008 Other place in unspecified non-institutional (private) residence as the place of occurrence of the external cause; J45.909 Unspecified asthma, uncomplicated; Z87.891 Personal history of nicotine dependence
CPT/HCPCS: 27818; 96361; 96374; 96376; 99285; A9270-GY; J1170; J2250

== ENCOUNTER → 2019-07-26 10:50 | Day surgery (SDC) | payer OTHER ==
[~2019-07-26 10:50] MED LIST changes: +Acetaminophen TAB* 325 MG ONE; +Acetaminophen TAB* 325 MG PO ONE; +Buffered Lidocaine 1% SYRIN* 1 ML/SYRINGE INTRADERM ONE; +Bupivacaine 0.25% SDV PF* 10 ML VIAL INJ ONE; +Dexamethasone IV* 4 MG/ML 1 ML (4 MG) ONE; +Glycopyrrolate IV* 0.2 MG/ML 1 ML VIAL ONE; +HYDROmorphone INJ1* 1 MG/ML SYRINGE IV PRN; +HYDROmorphone INJ1* 1 MG/ML SYRINGE ONE; +KETAMINE HCL* 50 MG/ML 10 ML VIAL ONE; +Ketorolac INJ* 30 MG/ML 1 ML VIAL IV PRN; +Ketorolac INJ* 30 MG/ML 1 ML VIAL ONE; +Lactated Ringers 1000 ML Bag* 1,000 ML IV SCH; +Midazolam* 1 MG/ML 2 ML VIAL (2 MG) ONE; +Naloxone* 0.4 MG/ML 1 ML VIAL IV PRN; +Ondansetron INJ* 2 MG/ML VIAL IV PRN; +Ondansetron INJ* 2 MG/ML VIAL ONE; -PPD test dose* 5 TU/0.1 ML TEST (*USE PPD ORDER SET*) ONE; +PROCHLORPERAZINE INJ 5 MG/ML 2 ML VIAL IV PRN; +Propofol* 10 MG/ML 20 ML BTL ONE; +ROPIVACAINE 5 MG/ML 30 ML BTL (0.5%) ONE; +Rocuronium* 10 MG/ML VIAL ONE; +Scopolamine 1.5 mg* PATCH ONE; +Scopolamine 1.5 mg* PATCH TRANSDERM SCH; +Scopolamine PATCH Remove* 1 NOTE MISC PATCH OFF ONE; +ceFAZolin 1 GM ADVAN(*) 1 GM ADDV.VIAL IVPB ONE; +ceFAZolin 2 GM PREMIX in ORs 2 GM/50 ML BAG ONE; +diPHENhydraMINE IV* 50 MG/ML 1 ml VIAL (BENADRYL) IV PRN; +fentaNYL* 50 MCG/ML 2 ML VIAL (100 MCG VIAL) ONE; +fentaNYL* 50 MCG/ML 5 ML VIAL (250 MCG VIAL) ONE; +oxyCODONE TAB* 5 MG TAB ONE
[2019-07-26] MEDS: fentaNYL* 50 MCG/ML 2 ML VIAL (100 MCG VIAL) IV PRN ×4 (15:13→15:30)
[2019-07-26] MEDS: oxyCODONE TAB* 5 MG TAB PO PRN ×2 (15:36→15:37)
[2019-07-26 17:00] VITALS: BP 91/59
--- NOTE | 2019-07-26 20:57 | OP ---
DATE OF OPERATION: 07/26/19 - [facility] DATE OF : 84. SURGEON: Bay Rollins M.D. BOOKING OFFICER: Jolene Dahl PA-C. PRE-OP DIAGNOSIS: Left displaced bimalleolar ankle fracture. POST-OP DIAGNOSIS: Left displaced bimalleolar ankle fracture. OPERATIVE PROCEDURE: Internal fixation left lateral and medial malleolus. DESCRIPTION OF PROCEDURE: The patient was taken to the operating room, where a longitudinal incision was made over the distal fibula. It was an oblique posterior fragment, which was held in place out to length with a Krackow clamp. There was some comminution loss of cortical continuity in the anterior portion of the fracture of about 3 mm in width. We applied the anatomic lateral fibular plate using locking screws distally and a combination of locking and nonlocking screws proximally. The posterior extension of the fracture seemed to be well located at this point in time. There was some disruption of the syndesmosis, so this was fixed through one of the more mid portion screws by placing a 4-cortical screw through the plate at an angle compressing the syndesmosis. A 5-cm incision was made medially over the medial malleolus. We dissected the anterior capsule to allow anatomic fixation of the medial malleolus. This was held in place temporarily with a pointed reduction clamp. Prior to the fixation , I harvested a little bit of cancellous graft from the center of the proximal portion of this medial malleolar fracture. This was placed on the lateral comminuted area of the fibula. We then pinned the medial malleolus using paired guidewires and 4.0 mm cannulated screws over washers. X-rays intraoperatively showed satisfactory position of the hardware as well as the mortise. We irrigated medial and lateral wounds, closing with 2-0 Monocryl sutures and elver for the skin and a compression dressing with plaster splint was applied. [id number]/[facility] #: [id number] [facility]
== END | disposition home or self-care (01) ==
LOC: OR 10:50
PROVIDERS: ATTEND Orthopaedic Surgery
DX: S82.842A Displaced bimalleolar fracture of left lower leg, initial encounter for closed fracture (principal); F41.8 Other specified anxiety disorders; W00.0XXA Fall on same level due to ice and snow, initial encounter; Y92.9 Unspecified place or not applicable; E66.01 Morbid (severe) obesity due to excess calories
CPT/HCPCS: 76000; 81025; A9270-GY; C1713; C1776; J0690; J1100; J1170; J1885; J2250; J2405; J2704; J2795; J3010; J3490